=== PATIENT | male | born 1955 | race Caucasian/White ===

== ENCOUNTER 2018-07-10 16:06 | Emergency (ER) | payer OTHER | END 2018-07-10 21:30 | disposition home or self-care (01) | LOC: E/R 16:06 | DX: S13.9XXA Sprain of joints and ligaments of unspecified parts of neck, initial encounter (principal); R40.2252 Coma scale, best verbal response, oriented, at arrival to emergency department; R40.2362 Coma scale, best motor response, obeys commands, at arrival to emergency department; R40.2142 Coma scale, eyes open, spontaneous, at arrival to emergency department; I10 Essential (primary) hypertension; G44.209 Tension-type headache, unspecified, not intractable; R93.0 Abnormal findings on diagnostic imaging of skull and head, not elsewhere classified; W07.XXXA Fall from chair, initial encounter; Y92.9 Unspecified place or not applicable | CPT/HCPCS: 70450; 72125; 99284-25 ==